=== PATIENT | female | born 1975 | race Two or more races ===

== ENCOUNTER 2018-10-22 08:02 | Emergency (ER) | payer MEDICAID ==
[~2018-10-22] VITALS: Ht 167.6 cm; Wt 71.8 kg
--- NOTE | 2018-10-22 08:15 | NUR ---
PT BIBSELF FROM HOME C/O BACK PAIN THAT STARTED THIS MORNING. PT FAMILY AT BEDSIDE. PT IS AOX4. 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 PT ON MONITOR IN BED 7. WILL CONTINUE TO MONITOR.
[2018-10-22] MEDS ORDERED: KETOROLAC TROMETHAMINE INJ 30 MG/ML VIAL ONE (08:28)
[2018-10-22] MEDS ORDERED: KETOROLAC TROMETHAMINE INJ 30 MG/ML VIAL IM ONE (08:30)
--- NOTE | 2018-10-22 08:32 | NUR ---
RADIOLOGY AT BEDSIDE FOR XRAY
--- NOTE | 2018-10-22 08:50 | NUR ---
Patient discharged to home in stable condition. Written and verbal after care instructions given. Patient verbalizes understanding of instruction. PT AMBULATED WITH STEADY GAIT WITH FAMILY.
[2018-10-22 08:53] VITALS: BP 129/84
== END 2018-10-22 08:53 | disposition home or self-care (01) ==
LOC: ER 08:08
DX: M54.6 Pain in thoracic spine (principal); M79.18 Myalgia, other site
CPT/HCPCS: 71045; 96372; 99283; A4606; J1885; Z7610